=== PATIENT | female | born 1990 | race Caucasian/White ===

== ENCOUNTER 2018-01-29 16:29 | Emergency (ER) | payer OTHER ==
[~2018-01-29] VITALS: Ht 160 cm; Wt 69.4 kg
[~2018-01-29 16:29] MED LIST: KETO10TA2 PO
== END 2018-01-29 22:56 | disposition home or self-care (01) ==
LOC: ER 16:29
DX: K52.9 Noninfective gastroenteritis and colitis, unspecified (principal); J11.1 Influenza due to unidentified influenza virus with other respiratory manifestations

== ENCOUNTER 2018-06-04 13:50 | Emergency (ER) | payer OTHER ==
[~2018-06-04] VITALS: Ht 160 cm; Wt 77.1 kg
== END 2018-06-04 20:16 | disposition home or self-care (01) ==
LOC: ER 13:50
DX: N83.02 Follicular cyst of left ovary (principal); R10.2 Pelvic and perineal pain

== ENCOUNTER 2018-09-27 23:03 | Emergency (ER) | payer OTHER ==
[~2018-09-27] VITALS: Ht 160 cm; Wt 81.2 kg
== END 2018-09-28 00:24 ==
LOC: ER 23:03
DX: J02.8 Acute pharyngitis due to other specified organisms (principal); K12.1 Other forms of stomatitis

== ENCOUNTER 2018-11-25 12:33 | Emergency (ER) | payer OTHER ==
[~2018-11-25] VITALS: Ht 160 cm; Wt 81.2 kg
== END 2018-11-25 14:07 | disposition home or self-care (01) ==
LOC: EMR PED 12:33 → ER 12:33
DX: J03.90 Acute tonsillitis, unspecified (principal); J32.8 Other chronic sinusitis

== ENCOUNTER 2021-04-07 11:39 | Emergency (ER) | payer OTHER ==
[~2021-04-07] VITALS: Ht 160 cm; Wt 76.7 kg
[2021-04-07] MEDS ORDERED: ZITHROMAX200 MG PO (15:27)
[2021-04-07] MEDS ORDERED: OSEL75CA PO (15:27)
== END 2021-04-07 16:40 | disposition home or self-care (01) ==
LOC: ER 11:39
DX: B34.9 Viral infection, unspecified (principal); Z11.52 Encounter for screening for COVID-19

== ENCOUNTER 2023-02-13 17:20 | Emergency (ER) | payer OTHER ==
[~2023-02-13] VITALS: Ht 160 cm; Wt 81.2 kg
[~2023-02-13 17:20] MED LIST changes: +OSEL75CA PO; +ZITHROMAX200 MG PO
== END 2023-02-13 20:30 | disposition home or self-care (01) ==
LOC: ER 17:20
DX: N39.0 Urinary tract infection, site not specified (principal)

== ENCOUNTER 2025-01-31 10:24 | Emergency (ER) | payer OTHER ==
[~2025-01-31] VITALS: Ht 160 cm; Wt 77.1 kg
== END 2025-01-31 11:23 | disposition home or self-care (01) ==
LOC: ER 10:25
DX: J06.9 Acute upper respiratory infection, unspecified (principal)